=== PATIENT | male | born 1990 | race African-American/Black ===

== ENCOUNTER 2016-03-18 06:43 | Emergency (ER) | payer OTHER ==
[2016-03-18 06:57] VITALS: BP 155/96; PULSE 98; TEMP 98
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
[2016-03-18 08:24] VITALS: RESP 16
== END 2016-03-18 08:23 | disposition home or self-care (01) ==
LOC: EC 06:43
DX: S01.81XA Laceration without foreign body of other part of head, initial encounter (principal); Y00.XXXA Assault by blunt object, initial encounter; F17.200 Nicotine dependence, unspecified, uncomplicated; Z91.048 Other nonmedicinal substance allergy status
CPT/HCPCS: 12011; 70450; 99283

== ENCOUNTER 2017-02-04 19:54 | Emergency (ER) | payer OTHER ==
--- NOTE | 2017-02-04 20:40 | ED ---
ENT HPI - General Chief complaint: ENT Stated complaint: mouth pain Time Seen by Provider: 02/04/17 20:22 Source: patient, RN notes reviewed Mode of arrival: ambulatory Limitations: no limitations - History of Present Illness Initial comments: This is a 27-year-old male presents emergency Department chief complaint of dental pain. Patient states pain started today. He has a right upper region. He states he can feel one of his teeth. Denies fever or chills or facial swelling. Denies: The dentist today. - Related Data Previous Rx's Medication Instructions Recorded Permethrin 5% Cream [Elimite] 1 applic TOPICAL ONCE #1 tube 12/17/15 Acetaminophen-Codeine 300-30mg 1 tab PO Q4H PRN #14 tablet 02/04/17 [Tylenol #3] Penicillin V Potassium [Pen Vee K] 500 mg PO QID #40 tablet 02/04/17 Allergies Allergy/AdvReac Type Severity Reaction Status Date / Time chalk Allergy Unknown Uncoded 02/04/17 20:11 dyes Allergy Unknown Uncoded 02/04/17 20:11 Review of Systems ROS Statement: Those systems with pertinent positive or pertinent negative responses have been documented in the HPI. ROS Other: All systems not noted in ROS Statement are negative. Past Medical History Past Medical History: No Reported History Additional Past Medical History / Comment(s): anxiety History of Any Multi-Drug Resistant Organisms: None Reported Past Surgical History: No Surgical Hx Reported Past Psychological History: Anxiety Smoking Status: Current every day smoker Past Alcohol Use History: Occasional Past Drug Use History: Marijuana General Exam Limitations: no limitations General appearance: alert, in no apparent distress Head exam: Present: atraumatic, normocephalic, normal inspection Eye exam: Present: normal appearance, PERRL, EOMI. Absent: scleral icterus, conjunctival injection, periorbital swelling ENT exam: Present: mucous membranes moist, TM's normal bilaterally. Absent: normal oropharynx (Dental Sonya right upper dentition, no drainable abscess mild erythema) Neck exam: Present: normal inspection, full ROM. Absent: tenderness, meningismus, lymphadenopathy Respiratory exam: Present: normal lung sounds bilaterally. Absent: respiratory distress, wheezes, rales, rhonchi, stridor Cardiovascular Exam: Present: normal rhythm, tachycardia, normal heart sounds. Absent: systolic murmur, diastolic murmur, rubs, gallop, clicks Course Vital Signs 02/04/17 20:07 Temperature 97.4 F L Pulse Rate 146 H Respiratory 20 Rate Blood Pressure 168/98 O2 Sat by Pulse 98 Oximetry Medical Decision Making - Medical Decision Making 27-year-old male presented for dental pain. Patient will be given penicillin, Tylenol with codeine and ibuprofen advised to follow-up with dentist. Concern for dental infection. Return parameters were discussed Disposition Clinical Impression: Pain due to dental caries Disposition: HOME SELF-CARE Condition: Stable Instructions: Toothache (ED) Additional Instructions: Please return to the Emergency Department if symptoms worsen or any other concerns. Prescriptions: Acetaminophen-Codeine 300-30mg [Tylenol #3] 1 tab PO Q4H PRN #14 tablet PRN Reason: pain Penicillin V Potassium [Pen Vee K] 500 mg PO QID #40 tablet Referrals: Wendy Ge MD [Primary Care Provider] - 1-2 days Time of Disposition: 20:40
[2017-02-04 20:54] VITALS: BP 165/97; PULSE 119; RESP 17; TEMP 99.4
== END 2017-02-04 20:58 | disposition home or self-care (01) ==
LOC: EC 19:54
DX: K08.89 Other specified disorders of teeth and supporting structures (principal); F17.200 Nicotine dependence, unspecified, uncomplicated; Z91.048 Other nonmedicinal substance allergy status
CPT/HCPCS: 99282

== ENCOUNTER 2017-07-21 16:28 | Emergency (ER) | payer OTHER ==
[2017-07-21] MEDS ORDERED: HYDROcodone/APAP 7.5-325MG 1 EACH TAB PO ONE (17:06)
--- NOTE | 2017-07-21 17:22 | XR ---
EXAMINATION TYPE: XR ribs LT w pa chest xray DATE OF EXAM: 07/21/2017 COMPARISON: 12/13/2009 HISTORY: Pain TECHNIQUE: Left ribs are examined in 2 projections and supplemented with a frontal chest. FINDINGS: No acute pulmonary process is evident. No pneumothorax is evident. No displaced left rib fr actures are identified. IMPRESSION: 1. Normal left ribs.
--- NOTE | 2017-07-21 17:53 | ED ---
Fall HPI - General Chief Complaint: Fall Stated Complaint: LEFT SIDE RIB PAIN FROM FALL Time Seen by Provider: 07/21/17 16:42 Source: patient, RN notes reviewed Mode of arrival: ambulatory Limitations: no limitations - History of Present Illness Initial Comments: 27-year-old male presents emergency Department chief complaint of fall. Patient states she was skateboarding states that he tried to jump some stairs and states that he landed on the curb on his left side of his wrist. Patient states that it hurts to take a deep inspiration he has no worsening shortness breath denies head injury no loss conscious. Denies any abdominal pain this time. Patient denies any extremity injuries. Patient states she's not taking medications prior arrival he states he has an abrasion to his right knee. - Related Data Home Medications Medication Instructions Recorded Confirmed ALPRAZolam [Xanax] 2 mg PO DAILY PRN 02/04/17 02/04/17 Previous Rx's Medication Instructions Recorded Acetaminophen-Codeine 300-30mg 1 tab PO Q4H PRN #14 tablet 02/04/17 [Tylenol #3] Penicillin V Potassium [Pen Vee K] 500 mg PO QID #40 tablet 02/04/17 Hydrocodone/Acetaminophen [[place] 1 tab PO Q6HR PRN #10 tab 07/21/17 5-325] Allergies Allergy/AdvReac Type Severity Reaction Status Date / Time chalk Allergy Unknown Uncoded 07/21/17 16:34 dyes Allergy Unknown Uncoded 07/21/17 16:34 Review of Systems ROS Statement: Those systems with pertinent positive or pertinent negative responses have been documented in the HPI. ROS Other: All systems not noted in ROS Statement are negative. Past Medical History Past Medical History: No Reported History, Sleep Apnea/CPAP/BIPAP Additional Past Medical History / Comment(s): anxiety History of Any Multi-Drug Resistant Organisms: None Reported Past Surgical History: No Surgical Hx Reported Past Psychological History: Anxiety Smoking Status: Current every day smoker Past Alcohol Use History: Occasional Past Drug Use History: Marijuana General Exam Limitations: no limitations General appearance: alert, in no apparent distress Head exam: Present: atraumatic, normocephalic, normal inspection Respiratory exam: Present: normal lung sounds bilaterally, chest wall tenderness (Moderate left anterior lateral chest wall tenderness). Absent: respiratory distress, wheezes, rales, rhonchi, stridor Cardiovascular Exam: Present: regular rate, normal rhythm, normal heart sounds. Absent: systolic murmur, diastolic murmur, rubs, gallop, clicks GI/Abdominal exam: Present: soft, normal bowel sounds. Absent: distended, tenderness, guarding, rebound, rigid, organomegaly, mass, pulsatile mass Extremities exam: Present: normal inspection, full ROM, normal capillary refill. Absent: tenderness, pedal edema, joint swelling, calf tenderness Back exam: Present: full ROM. Absent: tenderness, CVA tenderness (R), CVA tenderness (L), paraspinal tenderness, vertebral tenderness Skin exam: Present: warm, dry, intact, normal color. Absent: rash Course Vital Signs 07/21/17 16:30 Temperature 97.2 F L Pulse Rate 96 Respiratory 20 Rate Blood Pressure 146/87 O2 Sat by Pulse 100 Oximetry Medical Decision Making - Medical Decision Making 27-year-old male presented to ER for left rib injury. X-ray was reviewed no acute fracture. Patient has no evidence of splenic injury. Patient we discharged with rib contusion return parameters were discussed. Disposition Clinical Impression: Fall, Contusion of rib on left side Disposition: HOME SELF-CARE Condition: Stable Instructions: Rib Contusion (ED) Additional Instructions: Please return to the Emergency Department if symptoms worsen or any other concerns. Prescriptions: Hydrocodone/Acetaminophen [[place] 5-325] 1 tab PO Q6HR PRN #10 tab PRN Reason: Pain Is patient prescribed a controlled substance at d/c from ED?: Yes If prescribed controlled substance>3 days was MAPS reviewed?: No When asked, does pt state using other controlled substances?: No Referrals: Wendy Ge MD [Primary Care Provider] - 1-2 days Time of Disposition: 18:30
--- NOTE | 2017-07-21 18:12 | US ---
EXAMINATION TYPE: US abdomen limited DATE OF EXAM: 07/21/2017 COMPARISON: NONE CLINICAL HISTORY: Pain. Left sided rib pain after a fall earlier today. Evaluate spleen EXAM MEASUREMENTS: Spleen: 9.3cm Left Kidney: 11.3 x 5.7 x 4.7cm 1. Spleen: appears wnl at this time as visualized 2. Left Kidney: no evidence of hydronephrosis or mass No suspicious fluid collections adjacent to the spleen are evident. A splenic fracture is not identif ied. IMPRESSION: 1. Normal left upper quadrant ultrasound. No splenic fracture or fluid collections are evident.
[2017-07-21 18:41] VITALS: BP 126/78; PULSE 82; RESP 18; TEMP 98.2
== END 2017-07-21 18:40 | disposition home or self-care (01) ==
LOC: EC 16:28
DX: S20.212A Contusion of left front wall of thorax, initial encounter (principal); G47.30 Sleep apnea, unspecified; Z99.89 Dependence on other enabling machines and devices; F17.200 Nicotine dependence, unspecified, uncomplicated; Z91.09 Other allergy status, other than to drugs and biological substances; W19.XXXA Unspecified fall, initial encounter; Y93.51 Activity, roller skating (inline) and skateboarding; Y92.89 Other specified places as the place of occurrence of the external cause
CPT/HCPCS: 76705; 99284

== ENCOUNTER 2017-07-22 04:05 | Emergency (ER) | payer OTHER ==
--- NOTE | 2017-07-22 05:09 | ED ---
SOB HPI - General Chief Complaint: Shortness of Breath Stated Complaint: Fall Time Seen by Provider: 07/22/17 04:30 Source: patient, EMS Mode of arrival: EMS Limitations: no limitations - History of Present Illness -: hour(s) Quality: aching Consistency: constant Improves With: nothing Worsens With: movement - Related Data Home Medications Medication Instructions Recorded Confirmed ALPRAZolam [Xanax] 2 mg PO DAILY PRN 02/04/17 02/04/17 Previous Rx's Medication Instructions Recorded Acetaminophen-Codeine 300-30mg 1 tab PO Q4H PRN #14 tablet 02/04/17 [Tylenol #3] Penicillin V Potassium [Pen Vee K] 500 mg PO QID #40 tablet 02/04/17 Hydrocodone/Acetaminophen [[place] 1 tab PO Q6HR PRN #10 tab 07/21/17 5-325] Ibuprofen [Motrin] 600 mg PO Q8HR PRN #20 tab 07/22/17 Allergies Allergy/AdvReac Type Severity Reaction Status Date / Time chalk Allergy Unknown Uncoded 07/21/17 16:34 dyes Allergy Unknown Uncoded 07/21/17 16:34 Review of Systems ROS Statement: Those systems with pertinent positive or pertinent negative responses have been documented in the HPI. ROS Other: All systems not noted in ROS Statement are negative. Constitutional: Denies: fever, chills Respiratory: Denies: cough, dyspnea Cardiovascular: Reports: as per HPI, chest pain Gastrointestinal: Denies: abdominal pain, vomiting, diarrhea Genitourinary: Denies: dysuria, hematuria Musculoskeletal: Denies: back pain Skin: Denies: rash Neurological: Denies: headache, weakness, numbness Past Medical History Past Medical History: No Reported History, Sleep Apnea/CPAP/BIPAP Additional Past Medical History / Comment(s): anxiety History of Any Multi-Drug Resistant Organisms: None Reported Past Surgical History: No Surgical Hx Reported Past Psychological History: Anxiety Smoking Status: Current every day smoker Past Alcohol Use History: Occasional Past Drug Use History: Marijuana General Exam Limitations: no limitations General appearance: alert, in no apparent distress Head exam: Present: atraumatic, normocephalic Respiratory exam: Present: normal lung sounds bilaterally, chest wall tenderness. Absent: respiratory distress, wheezes, rales, rhonchi, stridor Cardiovascular Exam: Present: regular rate, normal rhythm, normal heart sounds. Absent: systolic murmur, diastolic murmur, rubs, gallop GI/Abdominal exam: Present: soft. Absent: distended, tenderness, guarding, rebound, mass Extremities exam: Present: normal inspection, normal capillary refill. Absent: pedal edema, calf tenderness Back exam: Present: normal inspection. Absent: CVA tenderness (R), CVA tenderness (L), vertebral tenderness Neurological exam: Present: alert Skin exam: Present: warm, dry, intact, normal color. Absent: rash Course Vital Signs 07/22/17 04:15 Temperature 98.7 F Pulse Rate 69 Respiratory 16 Rate Blood Pressure 137/75 O2 Sat by Pulse 98 Oximetry Disposition Clinical Impression: Fall, Contusion of rib on left side, Contusion of hip, left Disposition: HOME SELF-CARE Condition: Good Instructions: Hip Contusion (ED) Prescriptions: Ibuprofen [Motrin] 600 mg PO Q8HR PRN #20 tab PRN Reason: Pain Is patient prescribed a controlled substance at d/c from ED?: No Referrals: Wendy Ge MD [Primary Care Provider] - 1-2 days
--- NOTE | 2017-07-22 05:26 | XR ---
EXAM: XR Chest, 2 Views CLINICAL HISTORY: ITS.REASON XR Reason: Pain TECHNIQUE: Frontal and lateral views of the chest. COMPARISON: No relevant prior studies available. FINDINGS: Lungs: Unremarkable. No consolidation. Pleural space: Unremarkable. No pneumothorax. Heart: Unremarkable. No cardiomegaly. Mediastinum: Unremarkable. Bones/joints: Unremarkable. IMPRESSION: Normal chest x-rays.
--- NOTE | 2017-07-22 05:26 | XR ---
EXAM: XR Left Hip With Pelvis When Performed, 2 or 3 Views CLINICAL HISTORY: ITS.REASON XR Reason: Pain TECHNIQUE: Two or three views of the left hip, with pelvis when performed. COMPARISON: No relevant prior studies available. FINDINGS: Bones/joints: Unremarkable. No acute fracture. No dislocation. Soft tissues: Unremarkable. IMPRESSION: Normal left hip x-rays.
[2017-07-22 06:45] VITALS: BP 130/68; PULSE 70; RESP 16; TEMP 98.3
== END 2017-07-22 06:43 | disposition home or self-care (01) ==
LOC: EC 04:05
DX: S20.212A Contusion of left front wall of thorax, initial encounter (principal); S70.02XA Contusion of left hip, initial encounter; G47.30 Sleep apnea, unspecified; F17.200 Nicotine dependence, unspecified, uncomplicated; Z91.048 Other nonmedicinal substance allergy status; Z99.89 Dependence on other enabling machines and devices; V00.131A Fall from skateboard, initial encounter
CPT/HCPCS: 71046; 73502; 99285

== ENCOUNTER 2018-01-13 19:44 | Emergency (ER) | payer OTHER ==
[2018-01-13] MEDS ORDERED: PANTOPRAZOLE 40 MG/10 ML VIAL IVP STA (19:53)
[2018-01-13] MEDS ORDERED: ONDANSETRON 4 MG/2 ML VIAL IVP STA (19:53)
[2018-01-13] MEDS ORDERED: SODIUM CHLORIDE 0.9% 1,000 ML IV STA ×2 (19:53)
[2018-01-13] MEDS ORDERED: KETOROLAC 30 MG/ML 1 ML VIAL IVP STA (19:53)
--- NOTE | 2018-01-13 19:57 | ED ---
Abdominal Pain HPI - General Source: RN notes reviewed, old records reviewed <Kim Agarwal - Last Filed: 01/13/18 21:58> <Cheryl Goodman P - Last Filed: 01/14/18 02:27> - General Stated Complaint: Not feeling well Time Seen by Provider: 01/13/18 19:46 - History of Present Illness Initial Comments: Patient is a 28-year-old male who presents via EMS for chief complaint of severe alcohol use yesterday. He reports he is not feeling well today. He reports he drank approximately a half gallon of liquor last night. Patient reports that he is trying to vomit today and hasn't taking Pepto-Bismol. Patient started to have episodes of chest discomfort today and felt like his heart was racing. Patient reports he's had no other major complaints including recent fevers or chills. No significant cardiac history. Does have a history of anxiety. (Kim Agarwal) - Related Data Previous Rx's Medication Instructions Recorded Famotidine [Pepcid] 20 mg PO BID #20 tablet 01/13/18 Ondansetron Odt [Zofran Odt] 4 mg PO Q8HR PRN #20 tab 01/13/18 Allergies Allergy/AdvReac Type Severity Reaction Status Date / Time iodine Allergy Rash/Hives Verified 01/13/18 19:48 chalk Allergy Unknown Uncoded 07/21/17 16:34 dyes Allergy Unknown Uncoded 07/21/17 16:34 Review of Systems ROS Other: All systems not noted in ROS Statement are negative. <Kim Agarwal - Last Filed: 01/13/18 21:58> ROS Other: All systems not noted in ROS Statement are negative. <Cheryl Goodman P - Last Filed: 01/14/18 02:27> ROS Statement: Those systems with pertinent positive or pertinent negative responses have been documented in the HPI. Past Medical History Past Medical History: No Reported History, Sleep Apnea/CPAP/BIPAP Additional Past Medical History / Comment(s): anxiety History of Any Multi-Drug Resistant Organisms: None Reported Past Surgical History: No Surgical Hx Reported Past Psychological History: Anxiety Smoking Status: Current every day smoker Past Alcohol Use History: Occasional Past Drug Use History: Marijuana <Kim Agarwal - Last Filed: 01/13/18 21:58> General Exam General appearance: alert, in no apparent distress Head exam: Present: atraumatic, normocephalic, normal inspection Eye exam: Present: normal appearance, PERRL, EOMI. Absent: scleral icterus, conjunctival injection, periorbital swelling ENT exam: Present: normal exam, mucous membranes moist Neck exam: Present: normal inspection. Absent: tenderness, meningismus, lymphadenopathy Respiratory exam: Present: normal lung sounds bilaterally. Absent: respiratory distress, wheezes, rales, rhonchi, stridor Cardiovascular Exam: Present: regular rate GI/Abdominal exam: Present: soft, normal bowel sounds. Absent: distended, tenderness, guarding, rebound, rigid Extremities exam: Present: normal inspection, full ROM, normal capillary refill. Absent: tenderness, pedal edema, joint swelling, calf tenderness Back exam: Present: normal inspection Neurological exam: Present: alert Psychiatric exam: Present: normal affect, normal mood Skin exam: Present: warm, dry, intact, normal color. Absent: rash <Kim Agarwal - Last Filed: 01/13/18 21:58> <Cheryl Goodman P - Last Filed: 01/14/18 02:27> - General Exam Comments Initial Comments: This Patient is a 28-year-old male. Alert and oriented 3. Patient appears in no acute distress. Laying in the bed texting on cell phone. (Kim Agarwal) Vital Signs 01/13/18 01/13/18 01/13/18 19:51 20:49 22:10 Temperature 98.5 F 98.9 F Pulse Rate 101 H 89 85 Respiratory 16 18 16 Rate Blood Pressure 159/84 134/79 128/71 O2 Sat by Pulse 95 98 99 Oximetry Medical Decision Making - Lab Data Result diagrams: 01/13/18 20:42 01/13/18 20:42 <Kim Agarwal - Last Filed: 01/13/18 21:58> - Lab Data Result diagrams: 01/13/18 20:42 01/13/18 20:42 <Cheryl Goodman - Last Filed: 01/14/18 02:27> - Medical Decision Making 28-year-old male presents today not feeling well after drinking heavy amount of alcohol yesterday. He states that he felt like his heart was racing today. EKG performed shows normal sinus rhythm. Troponin is negative. Blood work did show mild leukocytosis. He has no fever at this time. He has no specific complaints of lower abdominal pain or cough congestion concern for illness. Patient states that he has had no other major signs or symptoms at this time. He does feel better after receiving fluids Toradol and Zofran. And Pepcid. At this time we'll discharge the Patient with a prescription for Pepcid and Zofran. I discussed following up with PCP and drinking plenty of fluids. Discussed recheck his white blood cell count. Patient agrees to treatment plan will comply. (Kim Agarwal) I was available for consultation in the emergency department. The history and physical exam were done by the Midlevel Provider. Medical decision making was done by the Midlevel Provider. The Midlevel Provider did not contact me for this patient's care. I was not directly involved in this patient's care. (Cheryl Goodman) - Lab Data Lab Results 01/13/18 01/13/18 01/13/18 Range/Units 20:42 20:42 20:42 WBC 15.2 H (3.8-10.6) k/uL RBC 5.26 (4.30-5.90) m/uL Hgb 16.5 (13.0-17.5) gm/dL Hct 50.6 (39.0-53.0) % MCV 96.1 (80.0-100.0) fL MCH 31.4 (25.0-35.0) pg MCHC 32.7 (31.0-37.0) g/dL RDW 13.1 (11.5-15.5) % Plt Count 284 (150-450) k/uL Neutrophils % 83 % Lymphocytes % 10 % Monocytes % 5 % Eosinophils % 1 % Basophils % 1 % Neutrophils # 12.5 H (1.3-7.7) k/uL Lymphocytes # 1.5 (1.0-4.8) k/uL Monocytes # 0.8 (0-1.0) k/uL Eosinophils # 0.2 (0-0.7) k/uL Basophils # 0.1 (0-0.2) k/uL PT 10.6 (9.0-12.0) sec INR 1.1 (<1.2) APTT 23.4 (22.0-30.0) sec Sodium 139 (137-145) mmol/L Potassium 4.3 (3.5-5.1) mmol/L Chloride 106 (98-107) mmol/L Carbon Dioxide 24 (22-30) mmol/L Anion Gap 9 mmol/L BUN 8 L (9-20) mg/dL Creatinine 0.86 (0.66-1.25) mg/dL Est GFR (CKD-EPI)AfAm >90 (>60 ml/min/1.73 sqM) Est GFR (CKD-EPI)NonAf >90 (>60 ml/min/1.73 sqM) Glucose 110 H (74-99) mg/dL Calcium 10.2 (8.4-10.2) mg/dL Total Bilirubin 0.5 (0.2-1.3) mg/dL AST 31 (17-59) U/L ALT 39 (21-72) U/L Alkaline Phosphatase 65 (38-126) U/L Troponin I (0.000-0.034) ng/mL Total Protein 7.0 (6.3-8.2) g/dL Albumin 4.2 (3.5-5.0) g/dL Amylase 41 (30-110) U/L Lipase 48 (23-300) U/L Urine Color Urine Appearance (Clear) Urine pH (5.0-8.0) Ur Specific Seney (1.001-1.035) Urine Protein (Negative) Urine Glucose (UA) (Negative) Urine Ketones (Negative) Urine Blood (Negative) Urine Nitrite (Negative) Urine Bilirubin (Negative) Urine Urobilinogen (<2.0) mg/dL Ur Leukocyte Esterase (Negative) 01/13/18 01/13/18 Range/Units 20:42 20:56 WBC (3.8-10.6) k/uL RBC (4.30-5.90) m/uL Hgb (13.0-17.5) gm/dL Hct (39.0-53.0) % MCV (80.0-100.0) fL MCH (25.0-35.0) pg MCHC (31.0-37.0) g/dL RDW (11.5-15.5) % Plt Count (150-450) k/uL Neutrophils % % Lymphocytes % % Monocytes % % Eosinophils % % Basophils % % Neutrophils # (1.3-7.7) k/uL Lymphocytes # (1.0-4.8) k/uL Monocytes # (0-1.0) k/uL Eosinophils # (0-0.7) k/uL Basophils # (0-0.2) k/uL PT (9.0-12.0) sec INR (<1.2) APTT (22.0-30.0) sec Sodium (137-145) mmol/L Potassium (3.5-5.1) mmol/L Chloride (98-107) mmol/L Carbon Dioxide (22-30) mmol/L Anion Gap mmol/L BUN (9-20) mg/dL Creatinine (0.66-1.25) mg/dL Est GFR (CKD-EPI)AfAm (>60 ml/min/1.73 sqM) Est GFR (CKD-EPI)NonAf (>60 ml/min/1.73 sqM) Glucose (74-99) mg/dL Calcium (8.4-10.2) mg/dL Total Bilirubin (0.2-1.3) mg/dL AST (17-59) U/L ALT (21-72) U/L Alkaline Phosphatase (38-126) U/L Troponin I <0.012 (0.000-0.034) ng/mL Total Protein (6.3-8.2) g/dL Albumin (3.5-5.0) g/dL Amylase (30-110) U/L Lipase (23-300) U/L Urine Color Yellow Urine Appearance Clear (Clear) Urine pH 7.0 (5.0-8.0) Ur Specific Seney 1.008 (1.001-1.035) Urine Protein Negative (Negative) Urine Glucose (UA) Negative (Negative) Urine Ketones Negative (Negative) Urine Blood Negative (Negative) Urine Nitrite Negative (Negative) Urine Bilirubin Negative (Negative) Urine Urobilinogen <2.0 (<2.0) mg/dL Ur Leukocyte Esterase Negative (Negative) 01/13/18 21:58 EKG performed at 16 shows normal sinus rhythm normal ECG. Ventricular rate of 98 bpm. SD interval is 164 ms. QRS ration 88. QTQTC search for/451 ms. (Kim Agarwal) Disposition Is patient prescribed a controlled substance at d/c from ED?: No Time of Disposition: 22:00 <Kim Agarwal - Last Filed: 01/13/18 21:58> <Cheryl Goodman - Last Filed: 01/14/18 02:27> Clinical Impression: History of alcohol consumption, Gastritis Disposition: HOME SELF-CARE Condition: Good Instructions: Gastritis (ED) Additional Instructions: Patient advised follow-up with primary care physician. Patient should drink plenty of fluids. Return to the emergency department if any alarming signs or symptoms occur. Prescriptions: Famotidine [Pepcid] 20 mg PO BID #20 tablet Ondansetron Odt [Zofran Odt] 4 mg PO Q8HR PRN #20 tab PRN Reason: Nausea Referrals: None,Stated [Primary Care Provider] - 1-2 days Beverly Boudreaux MD [STAFF PHYSICIAN] - 1-2 days
[2018-01-13 21:08] LABS: Basophils # (A) 0.1 k/uL (0-0.2); Basophils % (A) 1 %; Eosinophils # (A) 0.2 k/uL (0-0.7); Eosinophils % (A) 1 %; HCT 50.6 % (39.0-53.0); HGB 16.5 gm/dL (13.0-17.5); Lymphocytes # (A) 1.5 k/uL (1.0-4.8); Lymphocytes % (A) 10 %; MCH 31.4 pg (25.0-35.0); MCHC 32.7 g/dL (31.0-37.0); MCV 96.1 fL (80.0-100.0); Mean Platelet Volume 6.5; Monocytes # (A) 0.8 k/uL (0-1.0); Monocytes % (A) 5 %; Neutrophils # (A) 12.5 k/uL (1.3-7.7); Neutrophils % (A) 83 %; Platelet Count 284 k/uL (150-450); RBC 5.26 m/uL (4.30-5.90); RDW 13.1 % (11.5-15.5); WBC 15.2 k/uL (3.8-10.6)
[2018-01-13 21:17] LABS: Appearance,Urine Clear (Clear); Bilirubin,Urine Negative (Negative); Blood,Urine Negative (Negative); Color,Urine Yellow; Glucose,Urine (UA) Negative (Negative); Ketones,Urine Negative (Negative); Leukocyte Esterase,Urine Negative (Negative); Nitrite,Urine Negative (Negative); Protein,Urine Negative (Negative); Specific Gravity,Urine 1.008 (1.001-1.035); Urobilinogen,Urine <2.0 mg/dL (<2.0)
[2018-01-13 21:18] LABS: ALT 39 U/L (21-72); AST 31 U/L (17-59); Albumin 4.2 g/dL (3.5-5.0); Alkaline Phosphatase 65 U/L (38-126); Amylase 41 U/L (30-110); Anion Gap 9 mmol/L; Blood Urea Nitrogen 8 mg/dL (9-20); Calcium 10.2 mg/dL (8.4-10.2); Carbon Dioxide 24 mmol/L (22-30); Chloride 106 mmol/L (98-107); Glucose 110 mg/dL (74-99); Lipase 48 U/L (23-300); Potassium 4.3 mmol/L (3.5-5.1); Sodium 139 mmol/L (137-145); Total Bilirubin 0.5 mg/dL (0.2-1.3)
[2018-01-13 21:24] LABS: INR 1.1 (<1.2); Prothrombin Time 10.6 sec (9.0-12.0)
[2018-01-13 21:25] LABS: Partial Thromboplastin Time 23.4 sec (22.0-30.0)
[2018-01-13 22:13] VITALS: BP 128/71; PULSE 85; RESP 16; TEMP 98.9
== END 2018-01-13 22:18 | disposition home or self-care (01) ==
LOC: EC 19:44
DX: K29.70 Gastritis, unspecified, without bleeding (principal); D72.829 Elevated white blood cell count, unspecified; G47.30 Sleep apnea, unspecified; F17.200 Nicotine dependence, unspecified, uncomplicated; Z99.89 Dependence on other enabling machines and devices; Z91.048 Other nonmedicinal substance allergy status
CPT/HCPCS: 36415; 93005; 80053; 82150; 83690; 84484; 85025; 85610; 85730; 81003; 99284; 96374; 96375 ×2; 96361; J2405; J1885; C9113

== ENCOUNTER 2018-03-15 03:12 | Emergency (ER) | payer OTHER ==
[2018-03-15 03:32] VITALS: RESP 18
[2018-03-15] MEDS ORDERED: IBUPROFEN 800 MG TAB PO STA (04:03)
[2018-03-15] MEDS ORDERED: AMOXIC-POT CLAV 875-125MG 1 EACH TAB PO STA (04:03)
--- NOTE | 2018-03-15 04:05 | ED ---
ENT HPI - General Chief complaint: Dental/Oral Stated complaint: Dental pain Time Seen by Provider: 03/15/18 03:55 Source: patient Mode of arrival: ambulatory Limitations: no limitations - History of Present Illness MD complaint: tooth pain Onset/Timin -: month(s) Location: tooth # (32) Severity: severe Quality: aching Consistency: constant Improves with: none Worsens with: none Associated Symptoms: toothache - Related Data Previous Rx's Medication Instructions Recorded Famotidine [Pepcid] 20 mg PO BID #20 tablet 01/13/18 Ondansetron Odt [Zofran Odt] 4 mg PO Q8HR PRN #20 tab 01/13/18 Amoxicillin/Potassium Clav 1 tab PO Q12HR #14 tab 03/15/18 [Augmentin 875-125 Tablet] Ibuprofen 800 mg PO TID #20 tablet 03/15/18 Allergies Allergy/AdvReac Type Severity Reaction Status Date / Time iodine Allergy Rash/Hives Verified 03/15/18 03:32 chalk Allergy Unknown Uncoded 03/15/18 03:32 dyes Allergy Unknown Uncoded 03/15/18 03:32 Review of Systems ROS Statement: Those systems with pertinent positive or pertinent negative responses have been documented in the HPI. ROS Other: All systems not noted in ROS Statement are negative. Constitutional: Denies: fever, chills Eyes: Denies: eye pain, vision change ENT: Reports: dental pain. Denies: ear pain, throat pain, hearing loss Respiratory: Denies: dyspnea Cardiovascular: Denies: chest pain, palpitations Neurological: Denies: headache Past Medical History Past Medical History: Sleep Apnea/CPAP/BIPAP Additional Past Medical History / Comment(s): anxiety History of Any Multi-Drug Resistant Organisms: None Reported Past Surgical History: No Surgical Hx Reported Past Psychological History: Anxiety Smoking Status: Current every day smoker Past Alcohol Use History: Occasional Past Drug Use History: Marijuana General Exam Limitations: no limitations General appearance: alert, in no apparent distress Head exam: Present: atraumatic, normocephalic Eye exam: Present: normal appearance, PERRL, EOMI. Absent: scleral icterus, conjunctival injection ENT exam: Present: TM's normal bilaterally, other (Fracture to tooth #32. No dental abscess.). Absent: normal external ear exam Skin exam: Present: warm, dry, intact, normal color. Absent: rash Course Vital Signs 03/15/18 03:30 Temperature 98.5 F Pulse Rate 116 H Respiratory 18 Rate Blood Pressure 128/61 O2 Sat by Pulse 99 Oximetry Disposition Clinical Impression: Toothache Disposition: HOME SELF-CARE Condition: Good Instructions: Toothache (ED) Prescriptions: Amoxicillin/Potassium Clav [Augmentin 875-125 Tablet] 1 tab PO Q12HR #14 tab Ibuprofen 800 mg PO TID #20 tablet Is patient prescribed a controlled substance at d/c from ED?: No Referrals: Wendy Ge MD [Primary Care Provider] - 1-2 days
--- NOTE | 2018-03-15 05:12 | XR ---
EXAM: XR Soft Tissue Neck CLINICAL HISTORY: ITS.REASON XR Reason: Pain TECHNIQUE: Frontal and lateral views of the soft tissues of the neck. COMPARISON: No relevant prior studies available. FINDINGS: Airway: Unremarkable. Bones/joints: No acute fracture. Soft tissues: Lip piercing noted. IMPRESSION: No acute findings.
[2018-03-15] MEDS ORDERED: traMADol 50 MG STARTER PACK 3 TAB BTL PO STA (06:17)
[2018-03-15 06:42] VITALS: BP 97/65; PULSE 68; TEMP 98.4
== END 2018-03-15 06:45 | disposition home or self-care (01) ==
LOC: EC 03:12
DX: S02.5XXA Fracture of tooth (traumatic), initial encounter for closed fracture (principal); F17.200 Nicotine dependence, unspecified, uncomplicated; G47.30 Sleep apnea, unspecified; Z99.89 Dependence on other enabling machines and devices; Z91.048 Other nonmedicinal substance allergy status; X58.XXXA Exposure to other specified factors, initial encounter
CPT/HCPCS: 70360; 99283

== ENCOUNTER 2018-10-28 19:52 | Emergency (ER) | payer OTHER ==
[2018-10-28 20:09] VITALS: BP 127/80; PULSE 72; RESP 16; TEMP 98.4
[2018-10-28] MEDS ORDERED: KETOROLAC 60 MG/2 ML VIAL IM STA (20:31)
--- NOTE | 2018-10-28 20:36 | ED ---
General Adult HPI - General Chief complaint: Dental/Oral Stated complaint: Abcess tooth Time Seen by Provider: 10/28/18 20:05 Source: patient, RN notes reviewed Mode of arrival: ambulatory Limitations: no limitations - History of Present Illness Initial comments: This is a 28-year-old male who presents to the emergency department complaining of a couple days of tooth pain on the right lower incisor. Patient states he broke that to 3 months ago but has not been able to get to a dentist. Patient has not noticed any drainage he has noted little swelling at the base of the tooth. Patient denies any fever chills or cough. Patient denies any other symptoms at this time. - Related Data Previous Rx's Medication Instructions Recorded Famotidine [Pepcid] 20 mg PO BID #20 tablet 01/13/18 Ondansetron Odt [Zofran Odt] 4 mg PO Q8HR PRN #20 tab 01/13/18 Amoxicillin/Potassium Clav 1 tab PO Q12HR #14 tab 03/15/18 [Augmentin 875-125 Tablet] Ibuprofen 800 mg PO TID #20 tablet 03/15/18 Amoxicillin 500 mg PO Q8H #30 capsule 10/28/18 Ibuprofen [Motrin] 600 mg PO Q6HR PRN #20 tab 10/28/18 Allergies Allergy/AdvReac Type Severity Reaction Status Date / Time iodine Allergy Rash/Hives Verified 10/28/18 20:09 chalk Allergy Unknown Uncoded 10/28/18 20:09 dyes Allergy Unknown Uncoded 10/28/18 20:09 Review of Systems ROS Statement: Those systems with pertinent positive or pertinent negative responses have been documented in the HPI. ROS Other: All systems not noted in ROS Statement are negative. Past Medical History Past Medical History: Sleep Apnea/CPAP/BIPAP Additional Past Medical History / Comment(s): anxiety History of Any Multi-Drug Resistant Organisms: None Reported Past Surgical History: No Surgical Hx Reported Past Psychological History: Anxiety Smoking Status: Current every day smoker Past Alcohol Use History: Occasional Past Drug Use History: Marijuana General Exam - General Exam Comments Initial Comments: GENERAL Patient is well-developed and well-nourished. Patient is in mild distress. EYES Patient's pupils are equal and round. Extraocular motion is intact MOUTH Patient's right incisor is tender to palpation there is a little bit of swelling but no fluctuant area at the base of the gum. This area is tender to palpation SKIN Unremarkable NEURO The patient is alert and oriented 3 PYSCH Patient has normal interpersonal interactions. MUSCULOSKELETAL All 4 extremities have full range of motion Limitations: no limitations Course Vital Signs 10/28/18 20:07 Temperature 98.4 F Pulse Rate 72 Respiratory 16 Rate Blood Pressure 127/80 O2 Sat by Pulse 99 Oximetry Disposition Clinical Impression: Dental abscess Disposition: HOME SELF-CARE Instructions (If sedation given, give patient instructions): Dental Abscess (ED) Prescriptions: Amoxicillin 500 mg PO Q8H #30 capsule Ibuprofen [Motrin] 600 mg PO Q6HR PRN #20 tab PRN Reason: For pain Is patient prescribed a controlled substance at d/c from ED?: No Referrals: None,Stated [Primary Care Provider] - 1-2 days Time of Disposition: 20:35
== END 2018-10-28 20:42 | disposition home or self-care (01) ==
LOC: EC 19:52
DX: K04.7 Periapical abscess without sinus (principal); G47.30 Sleep apnea, unspecified; F17.200 Nicotine dependence, unspecified, uncomplicated; Z91.048 Other nonmedicinal substance allergy status; Z99.89 Dependence on other enabling machines and devices
CPT/HCPCS: 99283; 96372; J1885

== ENCOUNTER 2021-01-01 21:44 | Emergency (ER) | payer OTHER ==
[2021-01-01 22:01] VITALS: BP 135/86; PULSE 84; RESP 16; TEMP 99
[2021-01-01] MEDS ORDERED: IBUPROFEN 600 MG STARTER PACK 4 TAB BTL PO STA (23:36)
[2021-01-01] MEDS ORDERED: PENICILLIN VK 500MG STARTER 4 TAB BTL PO STA (23:36)
[2021-01-01] MEDS ORDERED: ACYCLOVIR 200 MG CAP PO STA (23:39)
--- NOTE | 2021-01-01 23:42 | ED ---
General Adult HPI - General Chief complaint: Dental/Oral Stated complaint: Dental Pain Time Seen by Provider: 01/01/21 22:22 Source: patient Mode of arrival: ambulatory Limitations: no limitations - History of Present Illness Initial comments: 31-year-old male presents to the emergency department for a chief complaint of dental pain. Patient reports that fractured tooth for several months on the right lower jaw. Patient states that the past couple days it started swelling and causing him pain. Denies fevers. Patient also states he has a sore on his lower lip that is painful. Denies fevers or chills. Denies any difficulty swallowing. Denies neck stiffness. Patient has no other complaints at this time including shortness of breath, chest pain, abdominal pain, nausea or vomiting, headache, or visual changes. - Related Data Previous Rx's Medication Instructions Recorded Acetaminophen [Tylenol] 500 mg PO Q4-6H PRN #20 tab 01/01/21 Acyclovir [Zovirax] 400 mg PO TID #21 tab 01/01/21 Ibuprofen [Motrin] 600 mg PO Q6HR PRN #20 tab 01/01/21 Penicillin V Potassium [Pen Vee K] 500 mg PO Q6H 10 Days #40 tablet 01/01/21 Allergies Allergy/AdvReac Type Severity Reaction Status Date / Time iodine Allergy Rash/Hives Verified 01/01/21 23:00 chalk Allergy Unknown Uncoded 01/01/21 23:00 dyes Allergy Unknown Uncoded 01/01/21 23:00 Review of Systems ROS Statement: Those systems with pertinent positive or pertinent negative responses have been documented in the HPI. ROS Other: All systems not noted in ROS Statement are negative. Past Medical History Past Medical History: No Reported History, Sleep Apnea/CPAP/BIPAP Additional Past Medical History / Comment(s): anxiety History of Any Multi-Drug Resistant Organisms: None Reported Past Surgical History: No Surgical Hx Reported Past Psychological History: Anxiety Smoking Status: Current every day smoker Past Alcohol Use History: Occasional Past Drug Use History: Marijuana General Exam Limitations: no limitations General appearance: alert, in no apparent distress Head exam: Present: atraumatic Eye exam: Present: normal appearance, PERRL, EOMI. Absent: scleral icterus, conjunctival injection ENT exam: Present: normal exam, mucous membranes moist. Absent: normal oropha rynx (Patient has mild edema noted to the right lower jaw. There is some mild edema noted of the mid gumline. No sublingual edema. Oropharynx patent.) Neck exam: Present: normal inspection, full ROM. Absent: tenderness Respiratory exam: Present: normal lung sounds bilaterally. Absent: respiratory distress, wheezes Cardiovascular Exam: Present: regular rate, normal rhythm, normal heart sounds GI/Abdominal exam: Present: soft, normal bowel sounds. Absent: distended, tenderness Neurological exam: Present: alert Course Vital Signs 01/01/21 21:58 Temperature 99 F Pulse Rate 84 Respiratory 16 Rate Blood Pressure 135/86 O2 Sat by Pulse 96 Oximetry Medical Decision Making - Medical Decision Making Vision and drainage was attempted as there was a possible abscess of the right gumline. However no purulent material expelled. Patient was started on penicillin. Patient also did have an ulceration noted to the left lower lip. Patient will be started on acyclovir as well. Instructed him to follow up with dentist. Disposition Clinical Impression: Dental infection, Aphthous ulcer Disposition: HOME SELF-CARE Condition: Good Instructions (If sedation given, give patient instructions): Dental Abscess (ED) Additional Instructions: Alternate Motrin and Tylenol every 3 hours as needed for pain. Take antibiotics as directed. Follow-up with dentist. Return to the emergency room for any worsening symptoms. Prescriptions: Ibuprofen [Motrin] 600 mg PO Q6HR PRN #20 tab PRN Reason: Pain Penicillin V Potassium [Pen Vee K] 500 mg PO Q6H 10 Days #40 tablet Acetaminophen [Tylenol] 500 mg PO Q4-6H PRN #20 tab PRN Reason: Pain Acyclovir [Zovirax] 400 mg PO TID #21 tab Is patient prescribed a controlled substance at d/c from ED?: No Referrals: Rachell Martinez MD [REFERRING] - 1-2 days Time of Disposition: 23:40
== END 2021-01-02 | disposition home or self-care (01) ==
LOC: EC 21:44
DX: K12.0 Recurrent oral aphthae (principal); K04.7 Periapical abscess without sinus; F41.9 Anxiety disorder, unspecified; F17.200 Nicotine dependence, unspecified, uncomplicated; F12.90 Cannabis use, unspecified, uncomplicated; G47.30 Sleep apnea, unspecified
CPT/HCPCS: 99282

== ENCOUNTER 2024-06-15 00:06 | Emergency (ER) | payer OTHER ==
[2024-06-15 00:22] VITALS: RESP 18; TEMP 97.1
--- NOTE | 2024-06-15 00:42 | ED ---
General Adult HPI - General Chief complaint: Allergic Reaction Stated complaint: allergic reaction Time Seen by Provider: 06/15/24 00:18 Source: patient, EMS Mode of arrival: EMS Limitations: no limitations - History of Present Illness Initial comments: Patient is a 34-year-old male no significant past medical history presenting today for hives. Patient states that he has been in between homes due to job changes in his staying with his friend. He woke up earlier today with hives on his abdomen and hands. He took a shower and these resolved spontaneously. This evening he and his friend were out for a walk and he began noticing hives on his hands, abdomen and the front of his neck. He was given 50 mg of Benadryl by EMS and at this point symptoms are already improving. He states he has no history of allergies and is adopted so is unsure if family history of allergies. Denies new laundry detergents or foods. There is no exposure to cats or dogs at patient's friend's house and is states that this friend's house is very clean. He denies any sensation of throat swelling, chest pain, nausea, vomiting. He is not on any type of FRANCIE inhibitor or other medications. He is did state for movement he felt like it was difficult to take a deep breath earlier but otherwise denies difficulty breathing. Of note he states about 2 days ago he di d have some peanut butter and after he ate that he did feel nauseous so he is unsure if this is a rhythm to do with his hives today however he has never had an issue with peanut butter in the past. - Related Data Previous Rx's Medication Instructions Recorded Acetaminophen [Tylenol] 500 mg PO Q4-6H PRN #20 tab 01/01/21 Acyclovir [Zovirax] 400 mg PO TID #21 tab 01/01/21 Ibuprofen [Motrin] 600 mg PO Q6HR PRN #20 tab 01/01/21 Penicillin V Potassium [Pen Vee K] 500 mg PO Q6H 10 Days #40 tablet 01/01/21 EPINEPHrine (Auto Inject) [Epipen] 0.3 mg IM ONCE PRN #2 each 06/15/24 predniSONE [Deltasone] 40 mg PO DAILY 4 Days #8 tab 06/15/24 Allergies Allergy/AdvReac Type Severity Reaction Status Date / Time iodine Allergy Rash/Hives Verified 01/01/21 23:00 chalk Allergy Unknown Uncoded 01/01/21 23:00 dyes Allergy Unknown Uncoded 01/01/21 23:00 Review of Systems ROS Statement: Those systems with pertinent positive or pertinent negative responses have been documented in the HPI. ROS Other: All systems not noted in ROS Statement are negative. Past Medical History Past Medical History: No Reported History, Sleep Apnea/CPAP/BIPAP Additional Past Medical History / Comment(s): anxiety History of Any Multi-Drug Resistant Organisms: None Reported Past Surgical History: No Surgical Hx Reported Past Psychological History: Anxiety Smoking Status: Current every day smoker Past Alcohol Use History: Occasional Past Drug Use History: Marijuana General Exam - General Exam Comments Initial Comments: PE: CONSTITUTIONAL: No apparent distress, well appearing SKIN: Warm, dry, no jaundice hives across lower abdomen that are scant and light pink, mildly erythematous rash to the dorsal aspect of the hands, patient states were previously hives and now improved, states abdominal rash is also improving, very mild periorbital edema EYES: Pupils are equally round, extraocular movements intact without nystagmus, clear conjunctiva, non-icteric sclera HENT: Normocephalic, atraumatic, moist mucus membranes, oropharynx clear without exudates, no uvular swelling, no tongue swelling, no lip swelling NECK: , Full range of motion, normal appearance PULMONARY: Clear to auscultation without wheezes, rhonchi, or rales, normal excursion, no accessory muscle use and no stridor CARDIOVASCULAR: Regular rate, rhythm, normal S1 and S2. No appreciated murmurs, rubs or gallops. Strong radial pulses with intact distal perfusion. No lower extremity edema GASTROINTESTINAL: Soft, active bowel sounds throughout, non-tender, non- distended, no palpable masses, no rebound or guarding. No hepatosplenomegaly MUSCULOSKELETAL: Extremities have no gross deformity, no edema, redness, or swelling. NEUROLOGIC:_a/o x 3, GCS 15, normal mentation and speech. Moves all extremities x 4 without motor or sensory deficit PSYCHIATRIC:_normal mood and affect, thought process is clear and linear Limitations: no limitations Course Vital Signs 06/15/24 06/15/24 00:20 02:01 Temperature 97.1 F L Pulse Rate 83 86 Respiratory 18 18 Rate Blood Pressure 140/82 136/80 O2 Sat by Pulse 97 97 Oximetry Medical Decision Making - Medical Decision Making Was pt. sent in by a medical professional or institution (, [facility], MEDICAL RECORD LIBRARIAN, urgent care, hospital, or usp...) When possible be specific @ -No Did you speak to anyone other than the patient for history (EMS, parent, family, police, friend...)? What history was obtained from this source @ -No Did you review nursing and triage notes (agree or disagree)? Why? @ -I reviewed nursing and triage notes nursing note does note that patient has a history of of an allergy to red dye however did not note this to myself, otherwise no known allergies, received 50 mg of Benadryl prior to arrival Were old charts reviewed (outside hosp., previous admission, EMS record, old EKG, old radiological studies, urgent care reports/EKG's, usp records)? Report findings @ -Medical records reviewed had a soft tissue neck x-ray done 2017 without acute process Differential Diagnosis (chest pain, altered mental status, abdominal pain women, abdominal pain men, vaginal bleeding, weakness, fever, dyspnea, syncope, headache, dizziness, GI bleed, back pain, seizure, CVA, palpatations, mental hea lth, musculoskeletal)? @ -Differential diagnosis remains broad over top considerations include allergic reaction, anaphylaxis, urticaria, angioedema this is not an all inclusive list EKG interpreted by me (3pts min.). @ -As above X-rays interpreted by me (1pt min.). @ -None done CT interpreted by me (1pt min.). @ -None done U/S interpreted by me (1pt. min.). @ -None done What testing was considered but not performed or refused? (CT, X-rays, U/S, labs)? Why? @ -None What meds were considered but not given or refused? Why? @ -None Did you discuss the management of the patient with other professionals (professionals i.e. SIMONA De Luna, MEDICAL RECORD LIBRARIAN, lab, RT, psych nurse, social media assistant, disc jockey, teacher, strategic intelligence officer, case maker)? Give summary @ -No Was smoking cessation discussed for >3mins.? @ -No Was critical care preformed (if so, how long)? @ -No Were there social determinants of health that impacted care today? How? (Homelessness, low income, unemployed, alcoholism, drug addiction, transportati on, low edu. Level, literacy, decrease access to med. care, usp, rehab)? @ -No Was there de-escalation of care discussed even if they declined (Discuss DNR or withdrawal of care, Hospice)? @ -No What co-morbidities impacted this encounter? (DM, HTN, Smoking, COPD, CAD, Cancer, CVA, ARF, Chemo, Hep., AIDS, mental health diagnosis, sleep apnea, morbid obesity)? @ -None Was patient admitted / discharged? Hospital course, mention meds given and route, prescriptions, significant lab abnormalities, going to OR and other pertinent info. @ -Discharge-patient is a pleasant 34-year-old gentleman presenting today for urticarial rash x 2 today without known exposure to allergens. Given 50 mg Benadryl prior to arrival with improved symptoms improving on my assessment already he has no additional signs or symptoms of anaphylaxis. He was given prednisone and Pepcid, observed and will be discharged home with EpiPen and steroids. Patient agreeable plan of care. Undiagnosed new problem with uncertain prognosis? @ -No Drug Therapy requiring intensive monitoring for toxicity (Heparin, Nitro, Insulin, Cardizem)? @ -No Were any procedures done? @ -No Diagnosis/symptom? @ -Urticaria, possible allergic reaction Acute, or Chronic, or Acute on Chronic? @ -Acute Uncomplicated (without systemic symptoms) or Complicated (systemic symptoms)? @Uncomplicated Side effects of treatment? @ -No Exacerbation, Progression, or Severe Exacerbation? @ -No Poses a threat to life or bodily function? How? (Chest pain, USA, UT, pneumonia, PE, COPD, DKA, ARF, appy, cholecystitis, CVA, Diverticulitis, Homicidal, Zambrano icidal, threat to staff... and all critical care pts) @ -No Disposition Clinical Impression: Urticaria Disposition: HOME SELF-CARE Condition: Good Instructions (If sedation given, give patient instructions): Urticaria (ED), Anaphylaxis (ED), Allergies (ED) Additional Instructions: Every disease is a spectrum and a small chance still exists that a serious condition could develop, for this reason, please monitor yourself closely for new, changing or worsening symptoms, return of symptoms, especially with difficulty in breathing, nausea vomiting, confusion or feeling like you are going to lose consciousness,inability to tolerate/keep down fluids or your medications, inability to follow up with outpatient providers as instructed and should you experience these symptoms or should you have any further concerns for your wellbeing please return to the ED or call 911 immediately. Please attempt to avoid peanut butter if possible in case this was the cause of your symptoms, take a shower or bath upon returning home. You may take 25 mg benadryl every 8 hours as needed for itching, but please be aware this may make you drowsy and do not use while driving or operating heavy machinery. Will be discharged home with a prescription for an EpiPen, please follow instructions on prescription for use, specifically, please use if you develop hives along with developing the sensation of difficulty in breathing or throat, lips or tongue swelling. PLEASE call your primary care physician as soon as possible to arrange / discuss plan for followup appointment. Appointment in the next 1-3 days is strongly encouraged if possible. PLEASE let us know here before you leave if there is anything further we can do to be of any assistance. Take care and feel Better! Prescriptions: predniSONE [Deltasone] 40 mg PO DAILY 4 Days #8 tab EPINEPHrine (Auto Inject) [Epipen] 0.3 mg IM ONCE PRN #2 each PRN Reason: Difficulty breathing Is patient prescribed a controlled substance at d/c from ED?: No Referrals: Wendy Ge MD [Primary Care Provider] - 1-2 days
[2024-06-15] MEDS: predniSONE 50 MG TAB PO STA (00:56)
[2024-06-15] MEDS: FAMOTIDINE 20 MG TAB PO STA (01:06)
[2024-06-15 02:01] VITALS: BP 136/80; PULSE 86
== END 2024-06-15 02:17 | disposition home or self-care (01) ==
LOC: EC 00:06
DX: L50.9 Urticaria, unspecified (principal); F17.200 Nicotine dependence, unspecified, uncomplicated; Z91.041 Radiographic dye allergy status; Z88.8 Allergy status to other drugs, medicaments and biological substances
CPT/HCPCS: 99284; J7512

== ENCOUNTER 2024-06-25 10:37 | Emergency (ER) | payer OTHER ==
--- NOTE | 2024-06-25 10:46 | ED ---
General Adult HPI - General Source: patient Mode of arrival: ambulatory Limitations: no limitations <Dedrick Jones - Last Filed: 06/25/24 10:44> <Neal Saeed - Last Filed: 06/25/24 13:18> - General Stated complaint: chest pain Time Seen by Provider: 06/25/24 10:40 - History of Present Illness Initial comments: Quick note: This is a 34-year-old male with history of AMOR presenting for possible heart issues for the past 10 days. Patient endorses waking most nights with a "shock, pulselike" sensation in his chest lasting 10 to 15 minutes before spontaneous resolution. Patient endorses feeling "panicked and scared" during those times, stating symptoms are worsening. Endorses occasional dyspnea during those times as well patient states that this sometimes occurs during the day while at rest as well. Denies radiating pain, diaphoresis, presyncope, cardiac history. (Dedrick Jones) Dictation was produced using [employer] dictation software. please excuse any grammatical, word or spelling errors. Chief Complaint: 34-year-old male presents to the emergency department sharp chest pain History of Present Illness: Patient 34-year-old male with denies any significant medical history states that over the last several days he has been having these intermittent episodes of left anterior lower sharp chest pain. States that it comes on intermittently. Does not feel like a pressure heaviness on his chest. Does not radiate to his arms shoulders or jaw. No associated diaphoresis or nausea. States that he notices it when he sleeps. Not sure if thinks anxiety. Denies any pain at the bedside. He is on sure of his family history given that he is adopted. The ROS documented in this emergency department record has been reviewed and confirmed by me. Those systems with pertinent positive or negative responses have been documented in the HPI. All other systems are other negative and/or n oncontributory. (Neal Saeed) - Related Data Previous Rx's Medication Instructions Recorded Acetaminophen [Tylenol] 500 mg PO Q4-6H PRN #20 tab 01/01/21 Acyclovir [Zovirax] 400 mg PO TID #21 tab 01/01/21 Ibuprofen [Motrin] 600 mg PO Q6HR PRN #20 tab 01/01/21 Penicillin V Potassium [Pen Vee K] 500 mg PO Q6H 10 Days #40 tablet 01/01/21 EPINEPHrine (Auto Inject) [Epipen] 0.3 mg IM ONCE PRN #2 each 06/15/24 predniSONE [Deltasone] 40 mg PO DAILY 4 Days #8 tab 06/15/24 Allergies Allergy/AdvReac Type Severity Reaction Status Date / Time iodine Allergy Rash/Hives Verified 06/25/24 10:54 chalk Allergy Unknown Uncoded 06/25/24 10:54 dyes Allergy Unknown Uncoded 06/25/24 10:54 Review of Systems ROS Other: All systems not noted in ROS Statement are negative. <Dedrick Jones - Last Filed: 06/25/24 10:44> ROS Other: All systems not noted in ROS Statement are negative. <Neal Saeed - Last Filed: 06/25/24 13:18> ROS Statement: Those systems with pertinent positive or pertinent negative responses have been documented in the HPI. Past Medical History Past Medical History: No Reported History, Sleep Apnea/CPAP/BIPAP Additional Past Medical History / Comment(s): anxiety History of Any Multi-Drug Resistant Organisms: None Reported Past Surgical History: No Surgical Hx Reported Past Psychological History: Anxiety Smoking Status: Current every day smoker Past Alcohol Use History: Occasional Past Drug Use History: Marijuana <Dedrick Jones - Last Filed: 06/25/24 10:44> General Exam <Dedrick Jones - Last Filed: 06/25/24 10:44> <Neal Saeed - Last Filed: 06/25/24 13:18> - General Exam Comments Initial Comments: Visual Physical Exam Vital signs reviewed General: Well-appearing, nontoxic, no acute distress. Head: Normocephalic, atraumatic Eyes: PERRLA, EOMI ENT: Airway patent Chest: Nonlabored breathing Skin: No visual rash, normal skin tone Neuro: Alert and oriented 3 Musculoskeletal: No gross abnormalities (Dedrick Jones) PHYSICAL EXAM: General Impression: Alert and oriented x3, not in acute distress HEENT: Normocephalic atraumatic, extra-ocular movements intact, pupils equal and reactive to light bilaterally, mucous membranes moist. Cardiovascular: Heart regular rate and rhythm Chest: Able to complete full sentences, no retractions, no tachypnea Abdomen: abdomen soft, non-tender, non-distended, no organomegaly Musculoskeletal: Pulses present and equal in all extremities, no peripheral edema Motor: no focal deficits noted Neurological: CN II-XII grossly intact, no focal motor or sensory deficits noted Skin: Intact with no visualized rashes Psych: Normal affect and mood (Neal Saeed) Course Vital Signs 06/25/24 10:50 Temperature 97.8 F Pulse Rate 62 Respiratory 22 Rate Blood Pressure 156/112 O2 Sat by Pulse 99 Oximetry EKG Findings - EKG Comments: EKG Findings:: My EKG interpretation: Ventricular rate 57, sinus rhythm, IA 150, QRS 90, QTc 390. No IA prolongation, no QTC prolongation, no ST or T-wave changes noted. Overall, this EKG is unremarkable <Neal Saeed - Last Filed: 06/25/24 13:18> Medical Decision Making <Dedrick Jones - Last Filed: 06/25/24 10:44> - Lab Data Result diagrams: 06/25/24 11:34 06/25/24 11:34 <Neal Saeed - Last Filed: 06/25/24 13:18> - Medical Decision Making I completed the quick note portion of this chart signed HERNANDO Hurst (Dedrick Jones) Was pt. sent in by a medical professional or institution (SIMONA De Luna, TEST ENGINEERING MANAGER, urgent care, hospital, or snf...) When possible be specific @ -No Did you speak to anyone other than the patient for history (EMS, parent, family, police, friend...)? What history was obtained from this source @ -No Did you review nursing and triage notes (agree or disagree)? Why? @ -I reviewed and agree with nursing and triage notes Were old charts reviewed (outside hosp., previous admission, EMS record, old EKG, old radiological studies, urgent care reports/EKG's, snf records)? Report findings @ -No old charts were reviewed Differential Diagnosis (chest pain, altered mental status, abdominal pain women, abdominal pain men, vaginal bleeding, musculoskeletal, weakness, fever, dyspnea, syncope, headache, dizziness, GI bleed, back pain, seizure, CVA, palpatations, mental health)? @ -Differential Chest Pain: Stable Angina, Unstable Angina, STEMI, NSTEMI Aortic Dissection, Pneumothorax, Musculoskeletal, Esophageal Spasm GERD, Cholecystitis, Pancreatitis, Zoster, this is not meant to be an all-inclusive list. EKG interpreted by me (3pts min.). @ -See above X-rays interpreted by me (1pt min.). @ -Chest x-ray is nonacute CT interpreted by me (1pt min.). @ -None done U/S interpreted by me (1pt. min.). @ -None done What testing was considered but not performed or refused? (CT, X-rays, U/S, labs)? Why? @ -None What meds were considered but not given or refused? Why? @ -None Was smoking cessation discussed for >3mins.? @ -No Were there social determinants of health that impacted care today? How? (Homelessness, low income, unemployed, alcoholism, drug addiction, transportation, low edu. Level, literacy, decrease access to med. care, nursing home, rehab)? @ -No Was there de-escalation of care discussed even if they declined (Discuss DNR or withdrawal of care, Hospice)? DNR status @ -No What co-morbidities impacted this encounter? (DM, HTN, Smoking, COPD, CAD, Cancer, CVA, ARF, Chemo, Hep., AIDS, mental health diagnosis, sleep apnea, morbid obesity)? @ -None Was patient admitted / discharged? Hospital course, mention meds given and route, prescriptions, significant lab abnormalities, going to OR and other pertinent info. @ -34-year-old male with atypical chest pain. Vital signs stable. EKG is unremarkable. Labs and chest x-ray are nonacute. Patient has no high risk features. Given starter pack for top #3 discharge. Advise follow-up with [facility] doctor. Did you discuss the management of the patient with other professionals (lazara esquivel i.e. , PA, TEST ENGINEERING MANAGER, lab, RT, psych nurse, social services analyst, final cigar and box examiner, teacher, loan officer, case making machine operator)? Give summary @ -No Was critical care preformed (if so, how long)? @ -No Undiagnosed new problem with uncertain prognosis? @ -No Drug Therapy requiring intensive monitoring for toxicity (Heparin, Nitro, Insulin, Cardizem)? @ -No Were any procedures done? @ -No Diagnosis/symptom? Acute, or Chronic, or Acute on Chronic? Uncomplicated (without systemic symptoms) or Complicated (systemic symptoms)? @ -Atypical chest pain, no high risk features Side effects of treatment? @ -No Exacerbation, Progression, or Severe Exacerbation? @ -No Poses a threat to life or bodily function? How? (Chest pain, [place], [place], pneumonia, PE, COPD, DKA, ARF, appy, cholecystitis, CVA, Diverticulitis, Homicidal, Suicidal, threat to staff... and all critical care pts) @ -No (Neal Saeed) - Lab Data Lab Results 06/25/24 06/25/24 06/25/24 Range/Units 11:34 11:34 11:34 WBC 8.32 (4.50-10.00) 10*3/uL RBC 4.89 (4.40-5.60) 10*6/uL Hgb 16.1 (13.0-17.0) g/dL Hct 44.8 (39.6-50.0) % MCV 91.6 (80.0-97.0) fL MCH 32.9 H (27.0-32.0) pg MCHC 35.9 (32.0-37.0) g/dL Plt Count 305 (140-440) 10*3/uL MPV 9.5 (9.5-12.2) fL Immature Gran % (Auto) 0.2 % Neutrophils % 62.5 % Lymphocytes % 27.5 % Monocytes % 7.0 % Eosinophils % 1.8 % Basophils % 1.0 % Immature Gran # 0.02 (0.00-0.04) 10*3/uL Neutrophils # 5.20 (1.80-7.70) 10*3/uL Lymphocytes # 2.29 (0.90-5.00) 10*3/uL Monocytes # 0.58 (0.20-1.00) 10*3/uL Eosinophils # 0.15 (0.04-0.35) 10*3/uL Basophils # 0.08 (0.00-0.10) 10*3/uL PT 10.6 (10.0-12.5) sec INR 1.0 (<1.2) APTT 25.1 (22.0-30.0) sec Sodium 137 (137-145) mmol/L Potassium 4.5 (3.5-5.1) mmol/L Chloride 105 (98-107) mmol/L Carbon Dioxide 28 (22-30) mmol/L Anion Gap 4 mmol/L BUN 11 (9-20) mg/dL Creatinine 0.71 (0.66-1.25) mg/dL Est GFR (CKD-EPI)AfAm >90 (>60 ml/min/1.73 sqM) Est GFR (CKD-EPI)NonAf >90 (>60 ml/min/1.73 sqM) Glucose 108 H (74-99) mg/dL Calcium 9.7 (8.4-10.2) mg/dL Magnesium 1.9 (1.6-2.3) mg/dL Total Bilirubin 0.9 (0.2-1.3) mg/dL AST 29 (17-59) U/L ALT 38 (4-49) U/L Alkaline Phosphatase 88 (38-126) U/L Troponin I (0.000-0.034) ng/mL Total Protein 7.4 (6.3-8.2) g/dL Albumin 4.4 (3.5-5.0) g/dL 06/25/24 Range/Units 11:34 WBC (4.50-10.00) 10*3/uL RBC (4.40-5.60) 10*6/uL Hgb (13.0-17.0) g/dL Hct (39.6-50.0) % MCV (80.0-97.0) fL MCH (27.0-32.0) pg MCHC (32.0-37.0) g/dL Plt Count (140-440) 10*3/uL MPV (9.5-12.2) fL Immature Gran % (Auto) % Neutrophils % % Lymphocytes % % Monocytes % % Eosinophils % % Basophils % % Immature Gran # (0.00-0.04) 10*3/uL Neutrophils # (1.80-7.70) 10*3/uL Lymphocytes # (0.90-5.00) 10*3/uL Monocytes # (0.20-1.00) 10*3/uL Eosinophils # (0.04-0.35) 10*3/uL Basophils # (0.00-0.10) 10*3/uL PT (10.0-12.5) sec INR (<1.2) APTT (22.0-30.0) sec Sodium (137-145) mmol/L Potassium (3.5-5.1) mmol/L Chloride (98-107) mmol/L Carbon Dioxide (22-30) mmol/L Anion Gap mmol/L BUN (9-20) mg/dL Creatinine (0.66-1.25) mg/dL Est GFR (CKD-EPI)AfAm (>60 ml/min/1.73 sqM) Est GFR (CKD-EPI)NonAf (>60 ml/min/1.73 sqM) Glucose (74-99) mg/dL Calcium (8.4-10.2) mg/dL Magnesium (1.6-2.3) mg/dL Total Bilirubin (0.2-1.3) mg/dL AST (17-59) U/L ALT (4-49) U/L Alkaline Phosphatase (38-126) U/L Troponin I <0.012 (0.000-0.034) ng/mL Total Protein (6.3-8.2) g/dL Albumin (3.5-5.0) g/dL Disposition <Dedrick Jones - Last Filed: 06/25/24 10:44> Is patient prescribed a controlled substance at d/c from ED?: No Time of Disposition: 13:18 <Neal Saeed - Last Filed: 06/25/24 13:18> Clinical Impression: Chest pain Disposition: HOME SELF-CARE Condition: Good Instructions (If sedation given, give patient instructions): Chest Pain (ED) Referrals: Wendy Ge MD [Primary Care Provider] - 1-2 days
[2024-06-25 10:54] VITALS: TEMP 97.8
--- NOTE | 2024-06-25 11:20 | XR ---
EXAMINATION TYPE: XR chest 2V DATE OF EXAM: 06/25/2024 CLINICAL INDICATION: Male, 34 years old with history of Chest Pain, TECHNIQUE: Frontal and lateral views of the chest are obtained. COMPARISON: Chest x-ray July 22, 2017 FINDINGS: There is new lingular linear scarring and/or atelectasis. Right lung is clear. The cardia c silhouette size is within normal limits. The osseous structures are intact. IMPRESSION: No suspicious acute pulmonary process. [facility], , 06/25/2024 11:17 AM
[2024-06-25 12:02] LABS: Basophils # (A) 0.08 10*3/uL (0.00-0.10); Eosinophils # (A) 0.15 10*3/uL (0.04-0.35); Eosinophils % (A) 1.8 %; HCT 44.8 % (39.6-50.0); HGB 16.1 g/dL (13.0-17.0); Lymphocytes # (A) 2.29 10*3/uL (0.90-5.00); Lymphocytes % (A) 27.5 %; MCH 32.9 pg (27.0-32.0); MCHC 35.9 g/dL (32.0-37.0); MCV 91.6 fL (80.0-97.0); Mean Platelet Volume 9.5 fL (9.5-12.2); Monocytes # (A) 0.58 10*3/uL (0.20-1.00); Neutrophils % (A) 62.5 %; Platelet Count 305 10*3/uL (140-440); RBC 4.89 10*6/uL (4.40-5.60); RDW 12.5 % (11.5-14.5); WBC 8.32 10*3/uL (4.50-10.00)
[2024-06-25 12:18] LABS: ALT 38 U/L (4-49); AST 29 U/L (17-59); African American GFR (CKD) >90 (>60 ml/min/1.73 sqM); Albumin 4.4 g/dL (3.5-5.0); Alkaline Phosphatase 88 U/L (38-126); Anion Gap 4 mmol/L; Blood Urea Nitrogen 11 mg/dL (9-20); Calcium 9.7 mg/dL (8.4-10.2); Carbon Dioxide 28 mmol/L (22-30); Chloride 105 mmol/L (98-107); Glucose 108 mg/dL (74-99); Magnesium 1.9 mg/dL (1.6-2.3); Non-African American GFR(CKD) >90 (>60 ml/min/1.73 sqM); Potassium 4.5 mmol/L (3.5-5.1); Sodium 137 mmol/L (137-145); Total Bilirubin 0.9 mg/dL (0.2-1.3); Total Protein 7.4 g/dL (6.3-8.2)
[2024-06-25 12:37] LABS: Partial Thromboplastin Time 25.1 sec (22.0-30.0); Prothrombin Time 10.6 sec (10.0-12.5)
[2024-06-25] MEDS: ACET/COD 300 MG/30 MG STARTER PACK 6 TAB BTL PO STA (13:22)
[2024-06-25 13:27] VITALS: BP 128/82; PULSE 55; RESP 20
== END 2024-06-25 13:27 | disposition home or self-care (01) ==
LOC: EC 10:37
DX: R07.89 Other chest pain (principal); F17.200 Nicotine dependence, unspecified, uncomplicated; Z91.041 Radiographic dye allergy status; Z88.8 Allergy status to other drugs, medicaments and biological substances
CPT/HCPCS: 36415; 71046; 80053; 83735; 84484; 85025; 85610; 85730; 93005; 99285